=== PATIENT | female | born 1940 | race Caucasian/White ===

== ENCOUNTER 2018-04-02 16:10 | Emergency (ER) | payer MEDICARE, BC ==
[~2018-04-02] VITALS: Ht 172.7 cm; Wt 106.6 kg
[2018-04-02] MEDS ORDERED: TENORMIN50 MG PO (16:29)
[2018-04-02 17:30] LABS: ABSOLUTE BASOPHILS 0.1 thou/uL (0.0-0.2); ABSOLUTE EOSINOPHILS 0.2 thou/uL (0.0-0.7); ABSOLUTE LYMPHOCYTES 2.1 thou/uL (0.8-5.3); ABSOLUTE MONOCYTES 0.9 thou/uL (0.0-1.2); ABSOLUTE NEUTROPHILS 6.2 thou/uL (1.6-8.1); BASOPHILS 1.2 %; EOSINOPHILS 1.9 %; HEMATOCRIT 43.8 % (37.0-47.0); HEMOGLOBIN 14.5 gm/dL (12.0-15.0); LYMPHOCYTES 22.2 %; MCH 27.6 pg (26.0-34.0); MCHC 33.2 g/dL (28.0-37.0); MCV 83.1 fL (80.0-100.0); MONOCYTES 9.1 %; MPV 7.8 fl. (7.2-11.1); NUCLEATED RBCS 0 /100WBC; PLATELET COUNT* 311 thou/uL (150-400); POLYS 65.6 %; RBC 5.27 mil/uL (4.20-5.00); RDW-CV 14.7 % (10.5-14.5); WBC 9.4 thou/uL (4.0-11.0)
[2018-04-02 17:46] LABS: ANION GAP 8 mmol/L (7-16); BUN 16 mg/dL (7-18); CALCIUM 9.3 mg/dL (8.5-10.1); CHLORIDE 97 mmol/L (98-107); CO2 28 mmol/L (21-32); CREATININE 1.1 mg/dL (0.6-1.3); GLUCOSE 97 mg/dL (70-99); POTASSIUM 4.3 mmol/L (3.5-5.1); SODIUM 133 mmol/L (136-145)
[2018-04-02 17:53] LABS: ALBUMIN 3.9 g/dL (3.4-5.0); ALKALINE PHOSPHATASE 96 U/L (46-116); LIPASE 152 U/L (73-393); SGOT 32 U/L (15-37); SGPT 26 U/L (30-65); TOTAL BILIRUBIN 0.4 mg/dL (<0.1-1.0); TOTAL PROTEIN 7.6 g/dL (6.4-8.2); TROPONIN-I LEVEL <0.06 ng/mL (<0.06)
[2018-04-02] MEDS ORDERED: HYDROCODONE-AP1 EAC6 PO (18:01)
[2018-04-02] MEDS ORDERED: ZOFRAN ODT4 MG PO (18:08)
[2018-04-02 18:41] VITALS: BP 192/101
== END 2018-04-02 18:42 | disposition home or self-care (01) ==
LOC: M.ERS 16:10
PROVIDERS: Physician Assistant
DX: M54.2 Cervicalgia (principal); M19.90 Unspecified osteoarthritis, unspecified site; Z85.3 Personal history of malignant neoplasm of breast; Z88.0 Allergy status to penicillin; Z88.2 Allergy status to sulfonamides; Z88.8 Allergy status to other drugs, medicaments and biological substances

== ENCOUNTER 2018-09-09 15:01 | Emergency (ER) | payer MEDICARE, BC ==
[~2018-09-09] VITALS: Ht 170.2 cm; Wt 99.8 kg
[~2018-09-09 15:01] MED LIST: HYDROCODONE-AP1 EAC6 PO; TENORMIN50 MG PO; ZOFRAN ODT4 MG PO
[2018-09-09 15:37] LABS: URINE BILIRUBIN NEGATIVE (Negative); URINE BLOOD NEGATIVE (Negative); URINE CLARITY CLEAR; URINE COLOR YELLOW; URINE GLUCOSE-RANDOM NEGATIVE (Negative); URINE KETONES NEGATIVE (Negative); URINE LEUKOCYTES-REFLEX NEGATIVE (Negative); URINE NITRITE-REFLEX NEGATIVE (Negative); URINE PROTEIN NEGATIVE (Negative); URINE SPECIFIC GRAVITY 1.015 (1.005-1.030); URINE UROBILINOGEN 0.2 E.U./dl (0.2-1.0)
[2018-09-09 15:46] LABS: ABSOLUTE BASOPHILS 0.1 thou/uL (0.0-0.2); ABSOLUTE EOSINOPHILS 0.2 thou/uL (0.0-0.7); ABSOLUTE LYMPHOCYTES 2.7 thou/uL (0.8-5.3); ABSOLUTE MONOCYTES 1.1 thou/uL (0.0-1.2); BASOPHILS 0.9 %; EOSINOPHILS 1.3 %; HEMATOCRIT 42.2 % (37.0-47.0); HEMOGLOBIN 13.9 gm/dL (12.0-15.0); MCH 27.8 pg (26.0-34.0); MCV 84.3 fL (80.0-100.0); MONOCYTES 9.3 %; MPV 7.8 fl. (7.2-11.1); NUCLEATED RBCS 0 /100WBC; PLATELET COUNT* 385 thou/uL (150-400); POLYS 66.5 %; RBC 5.01 mil/uL (4.20-5.00); RDW-CV 14.4 % (10.5-14.5)
[2018-09-09 15:52] LABS: ANION GAP 6 mmol/L (7-16); BUN 12 mg/dL (7-18); CALCIUM 9.7 mg/dL (8.5-10.1); CHLORIDE 91 mmol/L (98-107); CO2 29 mmol/L (21-32); GLUCOSE 112 mg/dL (70-99); SODIUM 126 mmol/L (136-145)
[2018-09-09 16:05] LABS: ALBUMIN 4.4 g/dL (3.4-5.0); ALKALINE PHOSPHATASE 97 U/L (46-116); NT-PRO BRAIN NAT PEPTIDE 696 pg/mL (<300); SGOT 45 U/L (15-37); SGPT 30 U/L (30-65); TOTAL BILIRUBIN 0.6 mg/dL (<0.1-1.0); TOTAL PROTEIN 8.5 g/dL (6.4-8.2); TROPONIN-I LEVEL <0.06 ng/mL (<0.06)
[2018-09-09 18:05] VITALS: BP 153/89
--- NOTE | 2018-09-10 17:58 | EKG ---
[place] [address] ELECTROCARDIOGRAM REPORT Name: SUAREZBRANDY Sher Aisha Room: [facility]#: [id number] Admission: 09/09/18 Attend Phys: Discharge: 09/09/18 Date of : 42 Report #: [id number] THIS REPORT FOR: //name// [facility] ED Test Date: 2018-09-09 Test Time: 15:23:24 Pat Name: BRANDY SUAREZ Department: Room: Gender: F Attorney At Law: PREM : 1940 Requested By: Carolyn Lo Order Number: [id number] MD: Felix Guzman Measurements Intervals [employer] Rate: 70 P: 72 MD: 168 QRS: -18 QRSD: 100 T: 39 QT: 396 QTc: 428 Interpretive Statements Sinus rhythm Left ventricular hypertrophy Compared to ECG 07/18/2009 08:49:23 Left ventricular hypertrophy now present Electronically Signed On 09-10-2018 17:58:31 CDT by Felix Guzman [email or web address] <ELECTRONICALLY SIGNED> By: Felix Guzman MD, [facility] 09/10/18 1758 1523 152 Felix Guzman MD, FACC /EPI
== END 2018-09-09 18:10 | disposition home or self-care (01) ==
LOC: M.ERS 15:01
PROVIDERS: Nurse Practitioner Family
DX: R42 Dizziness and giddiness (principal); I10 Essential (primary) hypertension; M19.90 Unspecified osteoarthritis, unspecified site; Z88.0 Allergy status to penicillin; Z88.2 Allergy status to sulfonamides; Z88.8 Allergy status to other drugs, medicaments and biological substances; Z90.710 Acquired absence of both cervix and uterus

== ENCOUNTER 2018-09-13 21:11 | Emergency (ER) | payer MEDICARE, BC ==
[~2018-09-13] VITALS: Ht 170.2 cm; Wt 106.6 kg
[2018-09-13 22:07] LABS: ABSOLUTE BASOPHILS 0.1 thou/uL (0.0-0.2); ABSOLUTE EOSINOPHILS 0.2 thou/uL (0.0-0.7); ABSOLUTE LYMPHOCYTES 2.5 thou/uL (0.8-5.3); ABSOLUTE MONOCYTES 0.8 thou/uL (0.0-1.2); ABSOLUTE NEUTROPHILS 7.9 thou/uL (1.6-8.1); BASOPHILS 0.7 %; EOSINOPHILS 1.7 %; HEMATOCRIT 39.9 % (37.0-47.0); HEMOGLOBIN 13.1 gm/dL (12.0-15.0); LYMPHOCYTES 21.7 %; MCH 27.7 pg (26.0-34.0); MCHC 32.9 g/dL (28.0-37.0); MCV 84.3 fL (80.0-100.0); MONOCYTES 7.3 %; MPV 8.1 fl. (7.2-11.1); NUCLEATED RBCS 0 /100WBC; PLATELET COUNT* 326 thou/uL (150-400); POLYS 68.6 %; RBC 4.74 mil/uL (4.20-5.00); RDW-CV 14.1 % (10.5-14.5); WBC 11.5 thou/uL (4.0-11.0)
[2018-09-13 22:15] LABS: URINE BILIRUBIN NEGATIVE (Negative); URINE BLOOD TRACE (Negative); URINE CLARITY CLEAR; URINE COLOR YELLOW; URINE GLUCOSE-RANDOM NEGATIVE (Negative); URINE KETONES TRACE (Negative); URINE LEUKOCYTES-REFLEX NEGATIVE (Negative); URINE NITRITE-REFLEX NEGATIVE (Negative); URINE PROTEIN NEGATIVE (Negative); URINE UROBILINOGEN 0.2 E.U./dl (0.2-1.0)
[2018-09-13 22:18] LABS: CALCIUM 9.4 mg/dL (8.5-10.1); CREATININE 0.9 mg/dL (0.6-1.3); POTASSIUM 4.3 mmol/L (3.5-5.1)
[2018-09-13 22:23] LABS: ALBUMIN 3.9 g/dL (3.4-5.0); TOTAL BILIRUBIN 0.6 mg/dL (<0.1-1.0); TOTAL PROTEIN 7.6 g/dL (6.4-8.2)
[2018-09-14 00:06] VITALS: BP 144/66
--- NOTE | 2018-09-14 11:14 | EKG ---
[place] [address] ELECTROCARDIOGRAM REPORT Name: SUAREZBRANDY Room: [facility]#: [id number] Admission: 09/13/18 Attend Phys: Discharge: 09/14/18 Date of : 42 Report #: [id number] THIS REPORT FOR: //name// [facility] ED Test Date: 2018-09-13 Test Time: 21:26:04 Pat Name: BRANDY SUAREZ Department: Room: Gender: F Mobile Marketing Manager: Aisha HARDING : 1940 Requested By: Jenny Burgos Order Number: [id number] Suzanne MD: Andrews Whiteside Measurements Intervals [place] Rate: 71 P: 64 WA: 181 QRS: -21 QRSD: 98 T: 41 QT: 389 QTc: 423 Interpretive Statements Sinus rhythm Left ventricular hypertrophy Compared to ECG 09/09/2018 15:23:24 No significant changes Electronically Signed On 09-14-2018 11:14:24 CDT by Andrews Whiteside [email or web address] <ELECTRONICALLY SIGNED> By: Andrews Whiteside MD, [facility] 09/14/18 1114 25 25 Andrews Whiteside MD, FAC /EPI
== END 2018-09-14 00:19 | disposition home or self-care (01) ==
LOC: M.ERS 21:11
PROVIDERS: Personal Emergency Response Attendant
DX: R42 Dizziness and giddiness (principal); I10 Essential (primary) hypertension; M19.90 Unspecified osteoarthritis, unspecified site; Z90.710 Acquired absence of both cervix and uterus; Z88.0 Allergy status to penicillin; Z88.2 Allergy status to sulfonamides

== ENCOUNTER → 2018-10-07 | Outpatient (CLI) | payer MEDICARE, BC | LOC: M.MRI 10-04 14:30 | DX: G31.89 Other specified degenerative diseases of nervous system (principal); F03.90 Unspecified dementia, unspecified severity, without behavioral disturbance, psychotic disturbance, mood disturbance, and anxiety; R26.9 Unspecified abnormalities of gait and mobility; E87.1 Hypo-osmolality and hyponatremia; G47.00 Insomnia, unspecified; E55.9 Vitamin D deficiency, unspecified ==

== ENCOUNTER → 2019-02-28 | Outpatient (CLI) | payer MEDICARE, BC ==
[~2019-02-28] MED LIST changes: +KLOR-CON 1010 MEQ PO; +MEDROLDOSEPACK PO; +NORCO 5-325 TA1 EACH PO
== END ==
LOC: M.ULTRA 15:00
DX: M79.89 Other specified soft tissue disorders (principal); M79.604 Pain in right leg; M79.605 Pain in left leg

== ENCOUNTER 2019-03-04 14:13 | Emergency (ER) | payer MEDICARE, BC ==
[~2019-03-04] VITALS: Ht 170.2 cm; Wt 100.9 kg
[~2019-03-04 14:13] MED LIST changes: -KLOR-CON 1010 MEQ PO; -MEDROLDOSEPACK PO; -NORCO 5-325 TA1 EACH PO
[2019-03-04] MEDS ORDERED: KLOR-CON 1010 MEQ PO (14:23)
[2019-03-04 14:58] LABS: URINE BILIRUBIN NEGATIVE (Negative); URINE BLOOD 1+ (Negative); URINE CLARITY CLEAR; URINE COLOR YELLOW; URINE GLUCOSE-RANDOM NEGATIVE (Negative); URINE KETONES NEGATIVE (Negative); URINE LEUKOCYTES-REFLEX NEGATIVE (Negative); URINE NITRITE-REFLEX NEGATIVE (Negative); URINE PROTEIN NEGATIVE (Negative); URINE SPECIFIC GRAVITY <= 1.005 (1.005-1.030); URINE UROBILINOGEN 0.2 E.U./dl (0.2-1.0)
[2019-03-04 15:04] LABS: ABSOLUTE BASOPHILS 0.1 thou/uL (0.0-0.2); ABSOLUTE EOSINOPHILS 0.1 thou/uL (0.0-0.7); ABSOLUTE LYMPHOCYTES 1.7 thou/uL (0.8-5.3); ABSOLUTE MONOCYTES 0.8 thou/uL (0.0-1.2); ABSOLUTE NEUTROPHILS 6.3 thou/uL (1.6-8.1); BASOPHILS 0.9 %; EOSINOPHILS 1.5 %; HEMATOCRIT 37.9 % (37.0-47.0); HEMOGLOBIN 12.6 gm/dL (12.0-15.0); LYMPHOCYTES 19.3 %; MCH 26.7 pg (26.0-34.0); MCHC 33.3 g/dL (28.0-37.0); MCV 80.2 fL (80.0-100.0); MONOCYTES 8.9 %; MPV 7.1 fl. (7.2-11.1); NUCLEATED RBCS 0 /100WBC; PLATELET COUNT* 330 thou/uL (150-400); POLYS 69.4 %; RBC 4.73 mil/uL (4.20-5.00)
[2019-03-04 15:04] LABS: BACTERIA-REFLEX None Seen /HPF (None Seen); CASTS None Seen /LPF (None Seen); CRYSTALS None Seen /LPF (None Seen); URINE RBC None Seen /HPF (0-2); URINE WBC-REFLEX None Seen /HPF (0-5)
[2019-03-04 15:25] LABS: ALBUMIN 4.3 g/dL (3.4-5.0); CALCIUM 9.5 mg/dL (8.5-10.1); CREATININE 0.9 mg/dL (0.6-1.3); POTASSIUM 4.1 mmol/L (3.5-5.1); TOTAL BILIRUBIN 0.6 mg/dL (<0.1-1.0)
[2019-03-04] MEDS ORDERED: NORCO 5-325 TA1 EACH PO (16:04)
[2019-03-04] MEDS ORDERED: MEDROLDOSEPACK PO (16:04)
[2019-03-04 16:09] VITALS: BP 187/95
== END 2019-03-04 16:10 | disposition home or self-care (01) ==
LOC: M.ERS 14:13
PROVIDERS: Nurse Practitioner Family
DX: M54.41 Lumbago with sciatica, right side (principal); I10 Essential (primary) hypertension; R60.0 Localized edema; M79.605 Pain in left leg; M79.604 Pain in right leg; M19.90 Unspecified osteoarthritis, unspecified site; Z88.0 Allergy status to penicillin; Z88.2 Allergy status to sulfonamides; Z88.8 Allergy status to other drugs, medicaments and biological substances; Z90.710 Acquired absence of both cervix and uterus

== ENCOUNTER 2019-03-07 02:51 | Emergency (ER) | payer MEDICARE, BC ==
[~2019-03-07] VITALS: Ht 170.2 cm; Wt 97.5 kg
[~2019-03-07 02:51] MED LIST changes: +KLOR-CON 1010 MEQ PO; +MEDROLDOSEPACK PO; +NORCO 5-325 TA1 EACH PO
[2019-03-07 05:43] VITALS: BP 168/70
== END 2019-03-07 05:30 | disposition home or self-care (01) ==
LOC: M.ERS 02:51
DX: M25.551 Pain in right hip (principal); R60.0 Localized edema; M19.90 Unspecified osteoarthritis, unspecified site; I10 Essential (primary) hypertension; Z88.0 Allergy status to penicillin; Z88.2 Allergy status to sulfonamides; Z88.8 Allergy status to other drugs, medicaments and biological substances; Z90.710 Acquired absence of both cervix and uterus

== ENCOUNTER 2019-05-02 11:41 | Emergency (ER) | payer MEDICARE, BC ==
[~2019-05-02] VITALS: Ht 172.7 cm; Wt 68.0 kg
[2019-05-02] MEDS ORDERED: NAMENDA 5 MG TAB5 M1 PO (12:15)
[2019-05-02] MEDS ORDERED: LASIX 20 MG TAB20 MG PO (12:16)
[2019-05-02 12:19] LABS: ABSOLUTE BASOPHILS 0.1 thou/uL (0.0-0.2); ABSOLUTE EOSINOPHILS 0.1 thou/uL (0.0-0.7); ABSOLUTE LYMPHOCYTES 2.3 thou/uL (0.8-5.3); ABSOLUTE MONOCYTES 0.8 thou/uL (0.0-1.2); ABSOLUTE NEUTROPHILS 6.1 thou/uL (1.6-8.1); BASOPHILS 1.1 %; EOSINOPHILS 1.1 %; HEMATOCRIT 38.1 % (37.0-47.0); HEMOGLOBIN 12.5 gm/dL (12.0-15.0); LYMPHOCYTES 24.1 %; MCH 26.4 pg (26.0-34.0); MCHC 32.7 g/dL (28.0-37.0); MCV 80.7 fL (80.0-100.0); MONOCYTES 8.9 %; MPV 7.3 fl. (7.2-11.1); NUCLEATED RBCS 0 /100WBC; PLATELET COUNT* 339 thou/uL (150-400); POLYS 64.8 %; RBC 4.71 mil/uL (4.20-5.00); WBC 9.4 thou/uL (4.0-11.0)
[2019-05-02 12:42] LABS: ANION GAP 9 mmol/L (7-16); BUN 19 mg/dL (7-18); CALCIUM 9.4 mg/dL (8.5-10.1); CHLORIDE 101 mmol/L (98-107); CO2 27 mmol/L (21-32); CREATININE 0.8 mg/dL (0.6-1.3); GLUCOSE 98 mg/dL (70-99); POTASSIUM 3.9 mmol/L (3.5-5.1); SODIUM 137 mmol/L (136-145)
[2019-05-02 12:46] LABS: ACETAMINOPHEN < 2 ug/mL (10-30); ALCOHOL < 10 mg/dL (<10); SALICYLATE < 2.8 mg/dL (2.8-20.0)
[2019-05-02 12:48] LABS: ALBUMIN 3.7 g/dL (3.4-5.0); ALKALINE PHOSPHATASE 73 U/L (46-116); NT-PRO BRAIN NAT PEPTIDE 724 pg/mL (<300); SGOT 40 U/L (15-37); SGPT 29 U/L (30-65); TOTAL BILIRUBIN 0.6 mg/dL (<0.1-1.0); TROPONIN-I LEVEL <0.06 ng/mL (<0.06)
[2019-05-02 13:25] LABS: URINE BILIRUBIN NEGATIVE (Negative); URINE BLOOD TRACE (Negative); URINE CLARITY CLEAR; URINE COLOR YELLOW; URINE GLUCOSE-RANDOM NEGATIVE (Negative); URINE KETONES 1+ (Negative); URINE LEUKOCYTES-REFLEX NEGATIVE (Negative); URINE NITRITE-REFLEX NEGATIVE (Negative); URINE PROTEIN NEGATIVE (Negative); URINE UROBILINOGEN 0.2 E.U./dl (0.2-1.0)
[2019-05-02 13:32] LABS: AMP/METHAMP Negative (Negative); BARBITURATES Negative (Negative); BENZODIAZEPINES Negative (Negative); COCAINE Negative (Negative); METHADONE Negative (Negative); OPIATES Negative (Negative); PCP Negative (Negative); THC Negative (Negative)
[2019-05-02] MEDS ORDERED: ATIVAN0.5 MG PO (15:11)
[2019-05-02 15:51] VITALS: BP 153/79
--- NOTE | 2019-05-03 15:35 | EKG ---
[place] [address] ELECTROCARDIOGRAM REPORT Name: ERICKBRANDY Aisha Room: [facility]#: [id number] Admission: 05/02/19 Attend Phys: Discharge: 05/02/19 Date of : 42 Report #: [id number] THIS REPORT FOR: //name// [facility] ED Test Date: 2019-05-02 Test Time: 12:27:37 Pat Name: BRANDY SUAREZ Department: Room: Gender: F Illuminator: MARIA : 1940 Requested By: Bobbi Guerrero Order Number: [id number] MD: Kirby Patel Measurements Intervals [place] Rate: 78 P: -9 NM: 153 QRS: -19 QRSD: 96 T: 38 QT: 381 QTc: 434 Interpretive Statements Sinus rhythm Probable left atrial enlargement Left ventricular hypertrophy, by voltage Compared to ECG 09/13/2018 21:26:04 No significant changes Electronically Signed On 05-03-2019 15:35:36 CDT by Kirby Patel [email or web address] <ELECTRONICALLY SIGNED> By: Kirby Patel MD, [facility] 05/03/19 1535 1227 122 Kirby Patel MD, FAC /EPI
== END 2019-05-02 15:52 | disposition home or self-care (01) ==
LOC: M.ERS 11:41
PROVIDERS: Nurse Practitioner Family
DX: R45.1 Restlessness and agitation (principal); F03.90 Unspecified dementia, unspecified severity, without behavioral disturbance, psychotic disturbance, mood disturbance, and anxiety; R41.82 Altered mental status, unspecified; I10 Essential (primary) hypertension; M19.90 Unspecified osteoarthritis, unspecified site; Z90.710 Acquired absence of both cervix and uterus; Z88.0 Allergy status to penicillin; Z88.2 Allergy status to sulfonamides; Z88.8 Allergy status to other drugs, medicaments and biological substances

== ENCOUNTER 2019-05-09 13:43 | Inpatient (IN) | payer MEDICARE, BC ==
[~2019-05-09] VITALS: Ht 172.7 cm; Wt 83.3 kg
[~2019-05-09 13:43] MED LIST changes: +ATIVAN0.5 MG PO; +LASIX 20 MG TAB20 MG PO; +NAMENDA 5 MG TAB5 M1 PO
[2019-05-09 13:44] VITALS: BP 181/76
[2019-05-09 14:09] LABS: ABSOLUTE EOSINOPHILS 0.2 thou/uL (0.0-0.7); ABSOLUTE LYMPHOCYTES 2.3 thou/uL (0.8-5.3); ABSOLUTE MONOCYTES 0.6 thou/uL (0.0-1.2); ABSOLUTE NEUTROPHILS 3.8 thou/uL (1.6-8.1); BASOPHILS 0.1 %; EOSINOPHILS 2.6 %; HEMATOCRIT 38.7 % (37.0-47.0); HEMOGLOBIN 12.6 gm/dL (12.0-15.0); LYMPHOCYTES 32.8 %; MCH 26.1 pg (26.0-34.0); MCHC 32.5 g/dL (28.0-37.0); MCV 80.4 fL (80.0-100.0); MONOCYTES 8.5 %; MPV 7.8 fl. (7.2-11.1); NUCLEATED RBCS 0 /100WBC; PLATELET COUNT* 272 thou/uL (150-400); RBC 4.82 mil/uL (4.20-5.00); RDW-CV 15.5 % (10.5-14.5); WBC 6.9 thou/uL (4.0-11.0)
[2019-05-09 14:16] LABS: ANION GAP 11 mmol/L (7-16); BUN 14 mg/dL (7-18); CALCIUM 9.3 mg/dL (8.5-10.1); CHLORIDE 101 mmol/L (98-107); CO2 27 mmol/L (21-32); CREATININE 0.9 mg/dL (0.6-1.3); GLUCOSE 99 mg/dL (70-99); POTASSIUM 3.7 mmol/L (3.5-5.1); SODIUM 139 mmol/L (136-145)
[2019-05-09 14:25] LABS: ALBUMIN 3.5 g/dL (3.4-5.0); ALKALINE PHOSPHATASE 71 U/L (46-116); SGOT 30 U/L (15-37); SGPT 25 U/L (30-65); TOTAL BILIRUBIN 0.6 mg/dL (<0.1-1.0); TOTAL PROTEIN 6.8 g/dL (6.4-8.2); TROPONIN-I LEVEL <0.06 ng/mL (<0.06)
[2019-05-09 15:46] LABS: URINE BILIRUBIN NEGATIVE (Negative); URINE BLOOD NEGATIVE (Negative); URINE CLARITY CLEAR; URINE COLOR DARK YELLOW; URINE GLUCOSE-RANDOM NEGATIVE (Negative); URINE KETONES TRACE (Negative); URINE LEUKOCYTES-REFLEX TRACE (Negative); URINE NITRITE-REFLEX NEGATIVE (Negative); URINE PROTEIN NEGATIVE (Negative); URINE SPECIFIC GRAVITY 1.015 (1.005-1.030); URINE UROBILINOGEN 0.2 E.U./dl (0.2-1.0)
[2019-05-09 15:54] LABS: SQUAMOUS 4-10 Moderate /LPF (0-3)
[2019-05-09 15:55] LABS: URINE WBC-REFLEX 0-5 Rare /HPF (0-5)
[2019-05-09 15:56] LABS: BACTERIA-REFLEX 1-9 Few /HPF (None Seen)
[2019-05-09 15:59] LABS: CASTS None Seen /LPF (None Seen); MUCUS 0-3 Light strn/LPF (None Seen)
[2019-05-09 16:00] LABS: URINE RBC 0-2 Rare /HPF (0-2)
[2019-05-09 16:02] LABS: CALCIUM OXALATE >10 Many /LPF (None Seen)
--- NOTE | 2019-05-09 17:29 | NUR ---
PUREWICK CATHETER APPLIED TO PATIENT AND CONNECTED TO SUCTION. PT INSTRUCTED ON HOW PUREWICK IS USED, VOICED UNDERSTANDING.
[2019-05-09 21:21] VITALS: BP 163/85
--- NOTE | 2019-05-09 21:30 | NUR ---
REPORT RECEIVED FROM SHARONDA MARKS IN ED. PT ARRIVED TO ROOM 202 @ 2114. TRANSFERRED FROM CART TO BED. PT UNABLE TO STAND @ THIS TIME R/T SEVERE DIZZYNESS. PT STATES "I NEED MY SCAPALOMINE PATCH." PT VERY ANXIOUS AND HUGGING HER BIBLE. ALSO REQUEST THAT SON NOT BE ALLOWED IN THE ROOM R/T "IM ALLERGIC TO GRASS AND HE'S ALWAYS MOWING THE LAWN." PT ORIENTED TO SELF.
[2019-05-10 00:29] VITALS: BP 184/82
[2019-05-10 04:00] VITALS: BP 169/87
[2019-05-10 05:13] LABS: HEMOGLOBIN 11.1 gm/dL (12.0-15.0); MCH 26.6 pg (26.0-34.0); MCHC 32.8 g/dL (28.0-37.0); MPV 8.5 fl. (7.2-11.1); RBC 4.19 mil/uL (4.20-5.00); RDW-CV 15.9 % (10.5-14.5); WBC 7.7 thou/uL (4.0-11.0)
[2019-05-10 05:27] LABS: CALCIUM 8.7 mg/dL (8.5-10.1); CREATININE 0.7 mg/dL (0.6-1.3); MAGNESIUM 2.1 mg/dL (1.8-2.4); POTASSIUM 3.4 mmol/L (3.5-5.1)
[2019-05-10 08:00] VITALS: BP 166/78
--- NOTE | 2019-05-10 11:00 | NUR ---
RECEIVED REPORT FROM ASHLEY AND ASSUMED CARE OF PT @ 6069.PT IS A/O X4,VSS,TRACING SR WITH PVC ON THE MONITOR.IV PATENT AND SALINE LOCKED.PT IS CALM AND COOPERATIVE WITH NO C/O PAIN.PT REFUSED TO DO MRI BECAUSE SHE STATES SHE JUST COMPLETED ONE IN THE LAST COUPLE OF MONTHS. NOTIFIED.PT IS CONSTIPATED BUT REFUSES MEDICATIONS.ST SAW PATIENT AND CHANGED DIET TO MECHANICAL SOFT DIET.PT LEFT RESTING IN BED WTIH CALL LIGHT AND FALL PRECAUTIONS IN PLACE.WILL CONTINUE TO MONITOR.
--- NOTE | 2019-05-10 11:27 | EKG ---
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: : 1940 Requested By: Yousuf Doan Order Number: [id number] MD: Andrews Whiteside Measurements Intervals [place] Rate: 74 P: -9 ND: 147 QRS: -16 QRSD: 93 T: 34 QT: 401 QTc: 445 Interpretive Statements Sinus rhythm Ventricular premature complex Left ventricular hypertrophy Compared to ECG 05/02/2019 12:27:37 Ventricular premature complex(es) now present Electronically Signed On 05-10-2019 11:26:46 CDT by Andrews Whiteside [email or web address] <ELECTRONICALLY SIGNED> By: Andrews Whiteside MD, [facility] 05/10/19 1126 1434 1434 Andrews Whiteside MD, [facility] /EPI
[2019-05-10 11:54] VITALS: BP 150/72
--- NOTE | 2019-05-10 14:10 | NUR ---
CM spoke with Pt's son in the hallway. Per son, Pt resides at home with him. Pt is normally A&O, with confusion. Pt is SBA with mobility, no DME. Pt completes her own "spongebaths." Hx of HH. No hx of SNF. Son stated that he submitted a [employer] eriberto 3 days ago. CM discussed skilled, son open, wants referral sent to [facility]. Son has made arrangements for Pt to move to [facility] post skilled stay. Updated Dr and nurse. Following.
--- NOTE | 2019-05-10 14:16 | NUR ---
NUCLEAR EQUIPMENT DESIGN ENGINEER INFORMED OF THE NEED TO SEND SKILLED REFERRAL TO [facility]. D/C HOUSE MOVER HELPER FAXED PATIENT'S CLINICAL INFO, AND WILL FAX PT/OT NOTES WHEN AVAILABLE. CM WILL REMAIN AVAILABLE TO ASSIST AND FOLLOW NEEDED.
[2019-05-10 16:03] VITALS: BP 150/69
--- NOTE | 2019-05-10 16:59 | NUR ---
VSS.CARDIAC MONITORING IN PLACE WITH NO CHANGES.PT PROGRESSING TOWARDS GOALS.NO C/O PAIN.IV PATENT AND SALINE LOCKED.PT WORKED WITH PT/OT/ST TODAY.HOURLY ROUNDING COMPLETED FOR PT SAFETY.CALL LIGHT AND FALL PRECAUTIONS IN PLACE.WILL CONTINUE TO MONITOR FOR DURATION OF SHIFT.
[2019-05-10 20:00] VITALS: BP 114/90
[2019-05-11] VITALS: BP 149/74
[2019-05-11 04:00] VITALS: BP 151/57
--- NOTE | 2019-05-11 07:46 | NUR ---
ASSUMED PT CARE AT 1930. ASSESSMENT COMPLETED CHARTED. ABLE TO MAKE NEEDS KNOWN. UP WITH SBA TO BSC. PT PLEASENT AND TALKATIVE WITH STAFF AND FAMILY MEMBERS THAT VISITED. NO C/O PAIN OR DISCOMFORT. PT RESTING IN BED AT THIS TIME. VSS. WILL CONTINUE TO MONITOR.
[2019-05-11 08:00] VITALS: BP 167/78
--- NOTE | 2019-05-11 10:20 | NUR ---
RECEIVED REPORT FROM MEGHAN AND ASSUMED CARE OF PT @ 4895.PT IS A/O X4 BUT FORGETFUL AND CONFUSED AT TIMES.VSS.TRACING SR WITH PAC ON THE MONITOR.IV PATENT AND SALINE LOCKED.PT REFUSED TO TAKE HER NAMENDA THIS AM BECAUSE SHE STATES SHE DOES NOT HAVE DEMENTIA.PT REFUSED TO COMPLETE MRI THAT WAS ORDERED.DOCTOR NOTIFIED OF REFUSALS.PT IS ANXIOUS AND TEARFUL THIS AM WITH NO C/O PAIN.PT LEFT RESTING IN BED WTIH CALL LIGHT AND FALL PRECAUTIONS IN PLACE.WILL CONTINUE TO MONITOR.
[2019-05-11 11:46] VITALS: BP 189/94
[2019-05-11 15:13] VITALS: BP 150/78
--- NOTE | 2019-05-11 17:17 | NUR ---
VSS.MED-SURG STATUS.PT HAS BEEN TEARFUL, ANXIOUS AND VERY CONFUSED THIS SHIFT.PAIN MANAGED WELL WITH PO MEDICATIONS.IV PATENT AND SALINE LOCKED.HOURLY ROUNDING COMPLETED FOR PT SAFETY.CALL LIGHT AND FALL PRECAUTIONS IN PLACE.WILL CONTINUE TO MONITOR FOR DURATION OF SHIFT.
[2019-05-11 20:00] VITALS: BP 153/86
[2019-05-12] VITALS: BP 148/80
[2019-05-12 04:00] VITALS: BP 146/82
--- NOTE | 2019-05-12 07:10 | NUR ---
ASSUMED PT CARE AT 1930. ASSESSMENT COMPLETED CHARTED. ABLE TO MAKE NEEDS KNOWN. NO C/O PAIN OR DISCOMFORT. UP WITH SBA. PT HUGGING GEORGE STATING SHE IS "PRAYING TO HELP HER CALM DOWN". REFUSING MEDS. PT SON CALLED TO SEE WHEN HE WOULD BE ABLE TO NARROW GAUGE OPERATOR PT TO GO TO THE LONGTERM. HE THEN CALLED BACK TO STATE THAT THEY NEED A TB TEST DONE BEFORE GOING TO THE LONGTERM. WILL CONTINUE TO MONITOR.
[2019-05-12 08:00] VITALS: BP 175/87
--- NOTE | 2019-05-12 08:04 | NUR ---
GERRY spoke with Ira at [facility] yesterday, they are able to accept Pt for skilled, but family will need to take care of the 2 open car insurance claims that are showing on her Medicare report. Jill from [facility] to reach out to son to inform.
[2019-05-12] MEDS ORDERED: MIRALAX17 GM PO (10:41)
[2019-05-12 15:56] VITALS: BP 149/78
--- NOTE | 2019-05-12 17:12 | NUR ---
RECEIVED REPORT FROM MEGHAN MAKRS. ASSUMED CARE OF PT AROUND 0730. PT ANSWERS ORIENTATION QUESTIONS CORRECTLY, BUT IS CONFUSED AND FORGETFUL. VSS. PT M/S STATUS. AM ASSESSMENT AND VITALS COMPLETED CHARTED. IV TO RIGHT WRIST INTACT AND SALINE LOCKED. PT HAS DENIED PAIN OR DISCOMFOR THIS SHIFT, BUT HAS COMPLAINED OF "VERTIGO" UPON STANDING. PT REFUSED TO WORK WITH PT/OT THIS SHIFT STATING SHE WAS TOO "WEAK". PT REFUSED ALL MEDICATIONS THIS SHIFT, EXCEPT POTASSIUM, STATING "I DON'T HAVE ALZHEIMER'S OR DEMENTIA; I DON'T NEED ANY OF THOSE MEDS". PT APPETITE FAIR. PT UP TO BEDSIDE COMMODE WITH ASSIST X1 TO TO VOID SEVERAL TIMES THIS SHIFT. NO BM SO FAR THIS SHIFT. PLAN IS FOR PT TO DC TO [facility] ONCE MEDICARE IS READY. PT CURRENTLY SITTING UP IN BED EATING DINNER. FALL PRECAUTIONS ARE IN PLACE. CALL LIGHT IS WITHIN REACH. HOURLY ROUNDING PERFORMED. WCTM FOR DURATION OF SHIFT.
[2019-05-12 20:00] VITALS: BP 165/64
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
[2019-05-13] VITALS: BP 144/76
[2019-05-13 04:00] VITALS: BP 142/80
[2019-05-13 08:15] VITALS: BP 128/70
--- NOTE | 2019-05-13 09:26 | NUR ---
ASSUMED CARE OF PT THIS AM AROUND 714- MS STATUS IN PLACE AND MAINTAINED INDICATED- UPON ASSESSMENT PT NOTED TO BE RESTING IN BED- PT A&O X2 WITH NOTED CONFUSSION-PT NOTED TO BE ANXIOUS AND WORRIED ABOUT MEDICARE ABD BEING ABLE TO PAY FOR STAY THIS AM- CONTINENT OF BOWEL AND BLADDER- ASSIST X1 WITH TRANSFERS- LCTA, RESP EVEN AND UN-LABORED- VSS, O2 SAT 95% ON RA- ABD SOFT/ROUND/NON-TENDER, BS X4 QUADS- UNKNOWN LAST BM- SCHEDULED MIRALAX GIVEN THIS AM- IV NOTED TO RIGHT WRIST INTACT AND SL- FAIR PO INTAKE NOTED THIS AM WITH BREAKFAST-PT DENIES ANY C/O PAIN/DISCOMFORT AT THIS TIME- CALL LIGHT AND PERSONAL BELONGINGS WITH IN REACH- HOURLY ROUNDS IN PLACE R/T SAFETY/NEEDS- ALL NEEDS MET AT THIS TIME-WCTM
--- NOTE | 2019-05-13 11:05 | NUR ---
Spoke with Jill at [facility], she is working with son and [employer] to get the open car insurance cases closed. Following.
[2019-05-13 14:08] LABS: HEMATOCRIT 38.9 % (37.0-47.0); HEMOGLOBIN 12.8 gm/dL (12.0-15.0); MCH 26.6 pg (26.0-34.0); MCHC 32.8 g/dL (28.0-37.0); MCV 81.1 fL (80.0-100.0); MPV 8.6 fl. (7.2-11.1); RBC 4.8 mil/uL (4.20-5.00)
[2019-05-13 14:20] LABS: CALCIUM 9.4 mg/dL (8.5-10.1); POTASSIUM 3.3 mmol/L (3.5-5.1)
[2019-05-13 15:42] VITALS: BP 140/74
--- NOTE | 2019-05-13 16:53 | NUR ---
PT CURRENTLY RESTING IN BED- M/S STATUS IN PLACE AND MAINTAINED INDICATED THIS SHIFT- IV TO RIGHT WRIST INTACT AND SL- POOR PO INTAKE NOTED THIS SHIFT WITH MEALS- ENSURE WITH MEALS PER PT REQUEST WITH GOOD INTAKE NOTED- NOTED CONFUSION/ANXIETY THIS SHIFT- PT REQUEST TO GO HOME, BUT [facility] PENDING AT THIS TIME- K+ NOTED AT 3.3 THIS SHIFT, DUE TO BE REPLACED PER PROTOCOL THIS SHIFT- ABG'S DRAW ORDERED THIS SHIFT, [facility]- CALL LIGHT AND PERSONAL BELONGINGS WITH IN REACH- HOURLY ROUNDS IN PLACE R/T SAFETY/NEEDS- ALL NEEDS MET AT THIS TIME-WCTM
[2019-05-13 20:00] VITALS: BP 125/69
--- NOTE | 2019-05-14 01:44 | NUR ---
PT ALERT, ORIENTED, PARINOID. PT STATED DON'T TRY TO SNEAK MY MEDICINE. PT REFUSED HS PAIN MEDICATION EXCEPT FOR ENOXAPARIN. PT STATED THERE IS NOTHING WRONG WITH ME. MED SURG STATUS. DENIES PAIN.
[2019-05-14 05:02] LABS: HEMATOCRIT 36.9 % (37.0-47.0); HEMOGLOBIN 12.1 gm/dL (12.0-15.0); MCH 26.4 pg (26.0-34.0); MCHC 32.8 g/dL (28.0-37.0); MCV 80.5 fL (80.0-100.0); MPV 8.9 fl. (7.2-11.1); RBC 4.58 mil/uL (4.20-5.00); RDW-CV 16.4 % (10.5-14.5); WBC 7.9 thou/uL (4.0-11.0)
[2019-05-14 05:33] LABS: CALCIUM 9.4 mg/dL (8.5-10.1); POTASSIUM 3.9 mmol/L (3.5-5.1)
[2019-05-14 07:48] VITALS: BP 147/84
--- NOTE | 2019-05-14 09:28 | NUR ---
ASSUMED CARE OF PT THIS AM AROUND 0730- M/S STATUS IN PLACE INDICATED- UPON ASSESSMENT PT NOTED TO BE RESTING IN BED- PT A&O X2-3 WITH NOTED FORGETFULLNESS- ANXIOUS WITH NOTED FLIGHT OF IDEAS/PARANIOA- CONTINENT VS INCONTINENT OF BOWEL AND BLADDER- ASSIST X1 WITH TRANSFERS- LCTA, RESP EVEN AND UN-LABORED- VSS, O2 SAT 97% ON RA- ABD/SOFT/ROUND/NON-TEDNER, BS X4 QUADS- PT REPORTS BM LAST SHIFT-1+ BLE EDEMA NOTED- IV NOTED TO RIGHT WRIST INTACT AND SL- FAIR PO INTAKE NOTED THIS AM- REFUSED AM MIRALAX- DENIES ANY PAIN/DISCOMFORT THIS AM- CALL LIGHT AND PERSONAL BELONGINGS WITH IN REACH- HOURLY ROUNDS IN PLACE R/T SAFETY/NEEDS- ALL NEEDS MET AT THIS TIME-WCTM
[2019-05-14 12:00] VITALS: BP 150/77
[2019-05-14 16:00] VITALS: BP 166/90
--- NOTE | 2019-05-14 16:20 | NUR ---
PT CURRENTLY RESTING IN BED- MS STATUS IN PLACE AND MAINTAINED- IV TO RIGHT WRIST INTACT AND SL- PT ENCOURAGED SEVERAL TIMES THIS SHIFT TO GET UP TO BED SIDE CHAIR, PT BECOMES ANGERED AND ANXIOUS REFUSING TO GET UP STATING : I CAN NOT DO THAT, MY KNEE LOCKS UP AND I WILL PEE ALL OVER MYSELF AND NO ONE WILL CARE AND SO ON" DESPITE MULTIPLE ATTEMPS OF TRYING TO CALM PT STILL NOTED TO BE ANGERED WITH FLIGHT OF IDEAS AND INCREASING ANXIETY- PT REFUSING MEALS AND TO TAKE MEDICATIONS AT TIMES, HARD TO REDIRECT AT TIMES- ORDER PLACED PER TO CONSULT TELE PYCH- TELE PYCH COMPLETED WITH RECOMMENDED ORDERS FAXED- NOTIFIED PER YOU CALL WITH NOTED RECOMMENDATIONS TO FOLLOW, BUT NO RETURN PHONE CALL AT THIS TIME- CALL LIGHT AND PERSONAL BELONGINGS WITH IN REACH- FREQUENT CHECKS IN PLACE R/T SAFETY/NEEDS- ALL NEEDS MET AT THIS TIME-WCTM
[2019-05-14 20:00] VITALS: BP 153/72
--- NOTE | 2019-05-15 02:54 | NUR ---
PT ALERT CONFUSED. FLIGHT OF IDEAS. REFUSED HS MEDICATIONS EXCEPT FOR ENOXAPARIN. MED SURG STATUS. UP TO BSC WITH ASSIST OF ONE. DENIES PAIN.
[2019-05-15 04:00] VITALS: BP 142/82
[2019-05-15 04:53] LABS: CALCIUM 9.2 mg/dL (8.5-10.1); CREATININE 1.1 mg/dL (0.6-1.3); MAGNESIUM 2.2 mg/dL (1.8-2.4)
[2019-05-15 07:30] VITALS: BP 138/80
--- NOTE | 2019-05-15 08:38 | NUR ---
ASSUMED CARE OF PT THIS AM AROUND 0715- M/S STATUS IN PLACE INDICATED- UPON ASSESSMENT PT NOTED TO BE RESTING IN BED- PT A&O X2-3 WITH NOTED FORGETFULLNESS, ANXIETY, FLIGHT OF IDEAS, PARNOIA- CONTINENT OF BOWEL AND BLADDER- ASSIST X1 WITH TRANSFERS- LCTA, RESP EVEN AND UN-LABORED- VSS, O2 SAT 96% ON RA- ABD SOFT/ROUND/NON-TENDER, BS X4 QUADS- LAST BM UNKOWN FOR SURE, PT REPORTS TO HAVE HAD ONE 2 DAYS AGO AND REFUSES MIRALAX THIS AM- IV NOTED TO RIGHT WRIST INTACT AND SL- POOR PO INTAKE NOTED, ENSURE GIVEN- PT DENIES PAIN THIS AM AND INSISTS THAT SHE IS NOT TAKEN THAT TYLENOL THAT IS ORDERED TODAY CAUSE IT ABOUT KILLED HER IT IS TO MUCH PER PT- CALL LIGHT AND PESONAL BELONGINGS WITH IN REACH- HOURLY ROUNDS IN PLACE R/T SAFETY/NEEDS- ALL NEEDS MET AT THIS TIME-WCTM
[2019-05-15 16:00] VITALS: BP 118/74
--- NOTE | 2019-05-15 16:10 | NUR ---
PT CURRENTLY RESTING IN BED- MS STATUS IN PLACE AND MAINTAINED INDICATED- POOR PO INTAKE WITH MEALS CONTINUES- ENSURE GIVEN WITH GOOD PO INTAKE NOTED- IV NOTED TO RIGHT WRIST INTACT AND SL- PT STILL REFUSE TO GET UP TO BED SIDE CHAIR THIS SHIFT- DENIES ANY C/O PAIN/DISCOMFORT AT THIS TIME- CALL LIGHT AND PERSONAL BELONGINGS WITH IN REACH- FREQUENT CHECKS IN PLACE R/T SAFETY/NEEDS- ALL NEEDS MET AT THIS TIME-WCTM
[2019-05-15 20:30] VITALS: BP 153/78
[2019-05-16 05:07] LABS: ABSOLUTE BASOPHILS 0.1 thou/uL (0.0-0.2); ABSOLUTE EOSINOPHILS 0.2 thou/uL (0.0-0.7); ABSOLUTE MONOCYTES 0.8 thou/uL (0.0-1.2); ABSOLUTE NEUTROPHILS 4.5 thou/uL (1.6-8.1); BASOPHILS 0.9 %; EOSINOPHILS 2.2 %; HEMATOCRIT 34.4 % (37.0-47.0); HEMOGLOBIN 11.2 gm/dL (12.0-15.0); LYMPHOCYTES 34.7 %; MCH 26.4 pg (26.0-34.0); MCHC 32.5 g/dL (28.0-37.0); MCV 81.3 fL (80.0-100.0); MONOCYTES 9.4 %; NUCLEATED RBCS 0 /100WBC; PLATELET COUNT* 279 thou/uL (150-400); POLYS 52.8 %; RBC 4.23 mil/uL (4.20-5.00); RDW-CV 16.4 % (10.5-14.5); WBC 8.5 thou/uL (4.0-11.0)
--- NOTE | 2019-05-16 05:16 | NUR ---
PT AWAKE OFF AND ON ALL NIGHT, FLIGHT OF IDEAS, PARANOIA, CONFUSION, ANXIETY. UP WITH SBA TO BSC TO VOID. PT ANXIOUS ABOUT GETTING IVF, THINKS IT WILL CAUSE LARGE BOWEL MOVEMENTS, EDUCATION GIVEN AND PT REASSURED AND HAS ALLOWED IT TO BE INFUSED BUT WITH FREQUENT QUESTIONS AND CONCERNS. RE-EDUCATED AND REASSURED SEVERAL TIMES. REFUSING SOME MEDS AT HS-"I DONT NEED THAT AND I DONT TRUST THE LADY WITH THE BUG EYES". R FA IV INFUSING ONE BAG PER PUMP. ROOM AIR SAT 96%. M/S STATUS. TAKING MED CRUSHED WITH PUDDING AND SNACK AT HS, ENSURE DRINK. CALL LITE IN EASY REACH, BED ALARM ON FOR SAFETY. HAS DENIED PAIN. POSSIBLE DC TO FACILITY, POSSIBLE GERIPSYCH. AM LABS DRAWN.
[2019-05-16 05:20] LABS: CREATININE 1.1 mg/dL (0.6-1.3); POTASSIUM 3.5 mmol/L (3.5-5.1)
[2019-05-16 08:12] VITALS: BP 150/79
--- NOTE | 2019-05-16 10:35 | NUR ---
RECEIVED REPORT FROM RANDALL AND ASSUMED CARE OF PT @ 1703.PT IS A/O X4 BUT CONFUSED DUE TO HX OF DEMENTIA.MED-SURG STATUS.IV PATENT AND SALINE LOCKED.PT IS ANXIOUS WITH RACING THOUGHTS.NO C/O PAIN.PT LEFT RESTING IN BED WTIH CALL LIGHT AND FALL PRECAUTIONS IN PLACE.WILL CONTINUE TO MONITOR.
--- NOTE | 2019-05-16 12:01 | NUR ---
Following for d/c planning needs. Spoke with physician. Pt was evaluated by psychiatrist over the weekend and inpatient psych is recommended. Called pt's son and he would prefer pt go to [facility]. Called [facility] and they currently do not have any female beds available and do not know when one will become available. Son said he is agreeable with referral to [facility] nadine-psych unit if no bed available at [facility]. Faxed referral to [facility] and spoke with intake. Faxed additional clinical information to intake. Will await return call re: bed availability and acceptance.
[2019-05-16] MEDS ORDERED: CHLORTHALIDONE25 MG PO (13:36)
[2019-05-16] MEDS ORDERED: ARICEPT 5 MG TAB5 MG PO (13:36)
[2019-05-16] MEDS ORDERED: VOLTAREN GEL 1100 G1 TOP (13:36)
[2019-05-16] MEDS ORDERED: NAMENDA 5 MG TAB5 M1 PO ×2 (13:36→13:52)
[2019-05-16] MEDS ORDERED: PAIN RELIEVER500 MG PO (13:36)
[2019-05-16] MEDS ORDERED: ZYPREXA 5 MG TAB5 M1 PO (13:36)
[2019-05-16] MEDS ORDERED: LASIX 20 MG TAB20 MG PO (13:51)
[2019-05-16] MEDS ORDERED: POTASSIUM20 PO (13:51)
[2019-05-16] MEDS ORDERED: ATIVAN0.5 MG PO (13:53)
[2019-05-16 14:00] VITALS: BP 150/79
--- NOTE | 2019-05-16 14:21 | NUR ---
PT GOING TO TRANSFER TO [facility].PAPERWORK COMPLETED AND SENT WITH PT.TRANSPORTATION SET UP BY CASE MANAGEMENT.IV REMOVED.ALL PERSONAL BELONGINGS PACKED AND GIVEN TO SON.REPORT CALLED TO DENIS AT [facility].PT INFORMED OF PLAN OF CARE AND NEEDS REINFORCEMENT.WILL CONTINUE TO MONITOR UNTIL TRANSFER.
--- NOTE | 2019-05-16 16:19 | NUR ---
PT DC PRIOR TO P.T. SESSION. CARSON PRICE, MPT
--- NOTE | 2019-05-17 14:10 | CON ---
[address] [address] CONSULTATION Name: BRANDY SUAREZ Room: [address] IN M.R.#: [id number] Admission: 05/09/19 Attend Phys: Shanae Mancilla MD Discharge: 05/16/19 Date of : 42 Report #: [id number] THIS REPORT FOR: //name// CC: Aster Mancilla DATE OF SERVICE: 05/10/2019 HISTORY OF PRESENT ILLNESS: This is a 78-year-old female patient who does not provide any good history. I called the patient's daughter. She indicated she does not know much about the history in this patient because the brother takes care of it. Brother works at night as I understand and is not available. I went back to the computer in my office and reviewed the records and this patient was seen by me late last year with memory problems. She was able to stay at home with a lot of help on the family. This is in spite of the fact that she scored only 16 on mini mental status at that time. The patient also had some hyponatremia at that time, which has been corrected. From the records, it looks like the family is unable to take care of the patient and the patient is being considered for a long-term unit. REVIEW OF SYSTEMS: Indicates that this patient has worsening confusion and she has dizziness. She has some agitation. She had some complaint of back pain. She denies most of it. I asked her about the 14-point review of system and she indicates she is not having any new eye, ENT, cardiac, respiratory, GI, , musculoskeletal, constitutional, dermatological, hematological, psychiatric, throat, allergic symptom associated with present symptomatology. History is completely unreliable. The patient in fact does not want to stay here and may be saying all those things to shorten the conversation. PAST MEDICAL HISTORY: Positive for dementia. FAMILY HISTORY: Negative for any early age stroke. SOCIAL HISTORY: The patient denies the use of alcohol. PHYSICAL EXAMINATION: NEUROLOGIC: Indicates she is alert. She can tell me what month it is, but she could not tell me the exact date. Her memory and fund of knowledge is diminished, but she knew what hospital she was in. Cranial nerve examination 2-12 looks mostly unremarkable. Her strength, sensation, reflexes and tone is symmetrical. There does not appear to be papilledema, pulses are difficult to feel. She said she is able to ambulate without much difficulty. EXTREMITIES: There is no edema, cyanosis or jaundice. CARDIAC: Examinations appear unremarkable. LUNGS: No respiratory difficulty was noticed. VITAL SIGNS: Blood pressure is 150/72, respirations are 18, pulse is 86, [place] [address] CONSULTATION Name: BRANDY SUAREZ Room: [address] IN .R.#: [id number] Admission: 05/09/19 Attend Phys: Shanae Mancilla MD Discharge: 05/16/19 Date of : 42 Report #: [id number] temperature is 98.2. LABORATORY DATA: White count is 7.7. Sodium is 141. She did have an MRI done in September here and that was reviewed and that was mostly unremarkable. IMPRESSION: It would appear that this patient has significant dementia. She also may be having some psychological issues superimposed on that. I discussed the situation with the patient and I recommended repeat workup including repeat MRI. She wants to do that. I will check a CT scan. I will check a TSH and vitamin B12. We cannot do much here, but as an outpatient, I will suggest a formal neuropsychological testing done and we had recommended trying some medications last time. She is on a small dose of Namenda. We can use a combination of Namenda and Exelon. We will continue to reach the patient's son in this patient and I think many other things need to be done as an outpatient because facility is not available to do those things here. <ELECTRONICALLY SIGNED> By: Morris Jung MD 05/17/19 1410 1516 [id number] Jung MD /nt
== END 2019-05-16 14:50 | DRG 72 ==
LOC: M.ERS 13:43 → M.2W 14:55 → M.TBA-ER 14:55 → M.2W 21:16
PROVIDERS: Family Medicine; Physician Assistant; ADMIT Internal Medicine
DX: G93.40 Encephalopathy, unspecified (principal); R42 Dizziness and giddiness; F03.90 Unspecified dementia, unspecified severity, without behavioral disturbance, psychotic disturbance, mood disturbance, and anxiety; Z96.1 Presence of intraocular lens; I10 Essential (primary) hypertension; R62.7 Adult failure to thrive; E87.6 Hypokalemia; M17.0 Bilateral primary osteoarthritis of knee; F41.9 Anxiety disorder, unspecified; Z68.27 Body mass index [BMI] 27.0-27.9, adult; Z90.710 Acquired absence of both cervix and uterus; Z98.41 Cataract extraction status, right eye; Z79.899 Other long term (current) drug therapy; Z88.0 Allergy status to penicillin; Z88.2 Allergy status to sulfonamides; Z88.8 Allergy status to other drugs, medicaments and biological substances